=== PATIENT | male | born 1975 | race Caucasian/White ===

== ENCOUNTER → 2017-07-27 | Outpatient (CLI) | payer BC ==
--- NOTE | 2017-07-27 21:46 | DIAGNOSTIC IMAGING REPORT ---
RIGHT LOWER EXT NONJOINT W/O CLINICAL HISTORY: 42 years-old Male presenting with R FOOT PAIN, R/O NEUROMA, pain since February, no injury, no prior surgery, evaluate second interspace for neuroma and right second metatarsal phalangeal joint. TECHNIQUE: Multisequence, multiplanar MR imaging of the right foot was performed without the use of intravenous contrast. IV contrast: None. COMPARISON: None. FINDINGS: Localizer images: Unremarkable. No bony edema. Normal bone marrow signal intensity. Normal muscle bulk and signal intensity. Flexor and extensor compartments normal-appearing. At the site of clinical concern no soft tissue mass lesion is apparent. Minimal degenerative changes may be evident at the second metatarsophalangeal joint with dorsal lateral osteophytosis along the proximal phalanx of the second toe. IMPRESSION: 1. No evidence of a mass lesion to suggest neuroma. 2. Minimal degenerative change suggested at the second metatarsophalangeal joint. No other significant abnormality. Electronically signed by: Vlad Carbajal M.D. 07/27/2017 9:45 PM Dictated Date/Time: 07/27/2017 9:41 PM
== END | disposition home or self-care (01) ==
LOC: C.MRI 20:20
PROVIDERS: ATTEND Podiatrist Foot & Ankle Surgery
DX: G57.81 Other specified mononeuropathies of right lower limb (principal); D36.13 Benign neoplasm of peripheral nerves and autonomic nervous system of lower limb, including hip; M24.874 Other specific joint derangements of right foot, not elsewhere classified; M77.8 Other enthesopathies, not elsewhere classified